=== PATIENT | male | born 1955 | race Hispanic/Latino ===

== ENCOUNTER 2017-08-25 05:05 | Day surgery (SDC) | payer OTHER ==
[2017-08-25] MEDS ORDERED: ASPIRIN PO ONE ×2 (05:28→07:16)
[2017-08-25] MEDS ORDERED: NACL 0.9% 1000 ML 0 ML ONE (05:34)
[2017-08-25] MEDS ORDERED: LOPRESSOR IV ONE ×4 (05:48→06:24)
--- NOTE | 2017-08-25 06:03 | XRay Report ---
FINAL REPORT EXAM: XR CHEST 1V AP HISTORY: chest pain/ carlie TECHNIQUE: AP portable view(s) of the chest obtained. PRIORS: None. FINDINGS: No mediastinal shift. Cardiac silhouette is enlarged. Overlying sternotomy wires. Valvular prosthesis is noted. Small right pleural effusion. Airspace disease silhouettes the right heart border. No pneumothorax or focal left lung abnormality. No acute skeletal finding. IMPRESSION: Right middle lobe airspace disease with small pleural effusion.
--- NOTE | 2017-08-25 06:23 | Emergency Department Report ---
ED General Adult HPI - General Chief complaint: Chest Pain Stated complaint: NEHEMIAH; CP Time Seen by Provider: 08/25/17 06:09 Source: patient Mode of arrival: Ambulatory Limitations: No Limitations - History of Present Illness Initial comments: Sick for 10 days saw emt at his house had heart rate 154 decided not to be transported because of his dogs, got sick this morning with rapid tachycardia and chest pain intermittent has had intermittent near syncope no black or bloody stool here for evaluation of a tachycardia with intermittent chest pain with near syncope, anad o x 3, no tearing p[ain, no calf pain, no gi c/o -: Gradual, days(s), unknown Location: chest Radiation: non-radiation Consistency: intermittent Improves with: none Worsens with: none Associated Symptoms: malaise, shortness of breath, syncope. denies: cough, diaphoresis, fever/chills, rash, seizure, weakness - Related Data Allergies Allergy/AdvReac Type Severity Reaction Status Date / Time No Known Allergies Allergy Verified 08/25/17 06:13 ED Review of Systems ROS: Stated complaint: NEHEMIAH; CP Other details as noted in HPI Comment: All other systems reviewed and negative Constitutional: denies: diaphoresis, fever Eyes: denies: eye discharge, vision change ENT: denies: dental pain, hearing loss, epistaxis Respiratory: shortness of breath. denies: SOB with exertion, SOB at rest, stridor Cardiovascular: chest pain, syncope. denies: palpitations, orthopnea, edema Gastrointestinal: denies: abdominal pain, diarrhea, constipation, hematemesis, melena Genitourinary: denies: urgency Musculoskeletal: denies: joint swelling, arthralgia Neurological: denies: headache, numbness, paresthesias, confusion Hematological/Lymphatic: denies: easy bruising ED Past Medical Hx - Past Medical History Previous Medical History?: Yes Additional medical history: mvp, - Surgical History Past Surgical History?: Yes Additional Surgical History: heart surgery - Social History Smoking Status: Current Every Day Smoker Substance Use Type: None ED Physical Exam - General Limitations: No Limitations General appearance: alert, in distress, other (patient initially comfortable on my initial exam however became diaphoretic and worsening shortness of breath) - Head Head exam: Present: atraumatic, normocephalic - Eye Eye exam: Present: PERRL, EOMI - ENT ENT exam: Present: normal exam, normal orophraynx - Neck Neck exam: Present: normal inspection. Absent: tenderness, meningismus - Respiratory Respiratory exam: Present: normal lung sounds bilaterally, respiratory distress , accessory muscle use - Cardiovascular Cardiovascular Exam: Present: tachycardia. Absent: rubs, gallop - GI/Abdominal GI/Abdominal exam: Present: soft. Absent: distended, tenderness, guarding, rebound, mass - Back Exam Back exam: Present: normal inspection, full ROM. Absent: CVA tenderness (L), muscle spasm, paraspinal tenderness, vertebral tenderness - Neurological Exam Neurological exam: Present: alert, oriented X3, CN II-XII intact. Absent: motor sensory deficit - Psychiatric Psychiatric exam: Present: anxious - Skin Skin exam: Present: diaphoretic ED Course Vital Signs 08/25/17 08/25/17 08/25/17 05:23 05:45 05:55 Temperature 97.4 F L Pulse Rate 66 213 H Respiratory 20 Rate Blood Pressure 90/66 111/79 O2 Sat by Pulse 98 Oximetry 08/25/17 08/25/17 08/25/17 06:01 06:15 06:21 Temperature Pulse Rate 145 H 99 H 188 H Respiratory 22 14 Rate Blood Pressure 103/38 133/77 O2 Sat by Pulse 100 100 Oximetry 08/25/17 08/25/17 08/25/17 06:31 06:45 06:48 Temperature Pulse Rate 145 H 79 80 Respiratory 48 H 20 28 H Rate Blood Pressure 103/76 121/91 121/91 O2 Sat by Pulse 98 100 100 Oximetry 08/25/17 07:00 Temperature Pulse Rate 80 Respiratory 24 Rate Blood Pressure 113/69 O2 Sat by Pulse Oximetry - Reevaluation(s) Reevaluation #1: 08/25/17 07:20 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 He was treated as SVT with adenosine 2. This did not improve fusion of given a beta liam. When I arrived heart rate was 121 T1 40 however patient did become worse with diaphoresis and a tachycardia ED Medical Decision Making - Lab Data Result diagrams: 08/25/17 06:19 08/25/17 06:19 - EKG Data -: EKG Interpreted by Me Rate: tachycardia - EKG Data When compared to previous EKG there are: no significant change - Radiology Data Radiology results: report reviewed - Medical Decision Making Patient did become diaphoretic with worsening parameters heart rate was 180 with therefore did elective synchronous cardioverted at 100j, this was successful with resolution of sinus rhythm. Repeat EKG does show right bundle incomplete with a LVH with T-wave inversions laterally possible old inferior wall IA, troponin was slightly elevated patient was given an aspirin he will be admitted for further evaluation. I discussed case with Dr. Gerry Cintron HOSPITALIST will admit patient was essentially weaned from BiPAP for his CT his blood gas did show normal pH with a low PCO2 and on a percent O2 that P O2 of 300. The shortness of breath likely was related to the tachycardia. He will be admitted for further evaluation I will discuss case with cardiology for further recommendations he is currently stable at this time with repeat systolic blood pressure 1:30 with a tachycardia that is since resolved with cardioversion Critical Care Time: Yes Critical care time in (mins) excluding proc time.: 45 Critical care attestation.: If time is entered above; I have spent that time in minutes in the direct care of this critically ill patient, excluding procedure time. ED Disposition Clinical Impression: Narrow complex tachycardia, Respiratory distress, Elevated troponin, Near syncope Disposition: OP ADMIT IP TO THIS HOSP Is pt being admited?: Yes Condition: Serious Referrals: TRACE CARRION MD [Primary Care Provider] - 3-5 Days Time of Disposition: 07:26
[2017-08-25] MEDS ORDERED: ZOFRAN IV ONE (06:27)
[2017-08-25] MEDS ORDERED: ATIVAN ONE ×2 (06:36→08:13)
[2017-08-25] MEDS ORDERED: CORDARONE IV ONE (06:39)
[2017-08-25 06:46] LABS: Basophils % (Auto) 0.4 % (0.0-1.8); Eosinophils % (Auto) 0.3 % (0.0-4.3); Hematocrit 44.5 % (35.5-45.6); Hemoglobin 14.7 gm/dl (11.8-15.2); Lymphocytes # (Auto) 1.3 K/mm3 (1.2-5.4); Lymphocytes % (Auto) 20.6 % (13.4-35.0); Mean Corpuscular HGB Conc 33 % (32-34); Mean Corpuscular Hemoglobin 34 pg (28-32); Mean Corpuscular Volume 104 fl (84-94); Monocytes # (Auto) 0.4 K/mm3 (0.0-0.8); Monocytes % (Auto) 6.9 % (0.0-7.3); Platelet Count 146 K/mm3 (140-440); Red Blood Count 4.28 M/mm3 (3.65-5.03); Red Cell Distribution Width 14.8 % (13.2-15.2)
[2017-08-25 06:59] LABS: BUN/Creatinine Ratio 14; Blood Urea Nitrogen 14 mg/dL (9-20); Calcium 8.3 mg/dL (8.4-10.2); Hemolysis Index 24
[2017-08-25] MEDS ORDERED: NACL ONE ×2 (07:11→07:33)
--- NOTE | 2017-08-25 07:18 | XRay Report ---
FINAL REPORT EXAM: XR CHEST 1V AP HISTORY: sob TECHNIQUE: AP portable view(s) of the chest obtained. PRIORS: 08/25/2017 FINDINGS: No mediastinal shift. Enlarged cardiac silhouette. Overlying sternotomy wires and cardiac valvular prosthesis. Decreased aeration of the lower lungs compared to earlier exam of the same date. No pneumothorax. IMPRESSION: Decreased aeration of the lungs compared to earlier exam of the same date may be positional or secondary to worsening infection, effusion and/or interstitial edema.
[2017-08-25 07:40] LABS: Chol/HDL Ratio 2.94 %; HDL Cholesterol 50 mg/dL (40-59); LDL Cholesterol,Direct 88 mg/dL (50-130)
[2017-08-25] MEDS ORDERED: CORDARONE 150 MG in D5W 100 ML IV ONE (08:00)
[2017-08-25] MEDS ORDERED: CORDARONE 900 MG in D5W 482 ML IV SCH (08:00)
[2017-08-25] MEDS ORDERED: SODIUM CHLORIDE FLUSH SYRINGE 10 ML IV PRN (08:12)
[2017-08-25 08:21] LABS: Hematocrit 48.8 % (35.5-45.6); Hemoglobin 16.3 gm/dl (11.8-15.2)
[2017-08-25 08:32] LABS: INR 1.12 (0.87-1.13)
[2017-08-25 08:33] LABS: Partial Thromboplastin Time 31.4 Sec. (24.2-36.6)
[2017-08-25] MEDS ORDERED: HEPARIN ONE (08:40)
--- NOTE | 2017-08-25 08:42 | History and Physical Report ---
History of Present Illness Date of examination: 08/25/17 Date of admission: 08/25/17 Chief complaint: shortness of breath, tachycardia History of present illness: Patient is a 62-year-old male presented to the ED with complaints of shortness of breath and palpitation which has not was noted for more than a week now. About 10 days ago the patient was seen by ENT of his hospital time his heart rate was 154-160 the patient decided against coming to the hospital because of his dogs. He continued to have this and also complained of persistent near syncope and this morning with was no shortness of breath presented to the hospital. On arrival was noted to have a heart rate in the 180s, diaphoretic with shortness of breath. He denied chest pain but had reported that to the ED physician. Which improved to the 140s and subsequently went back up to 160s he did have cardioversion at 100 J with improvement but once again went back up to the 180s requiring amiodarone drip started. On initiation of amiodarone. The patient became bradycardic leading to cessation of amiodarone. Patient was recommended for admission and cardiology was consulted. He was also initially placed on BiPAP due to shortness of breath but on my evaluation patient had come off BiPAP. He was speaking full sentences. But could not provide specific information about his symptoms except what was already noted from the emergency room physician. He denied any hemoptysis or hematemesis or melena. Past History Past Medical History: other (mitral valve prolapase) Past Surgical History: Other Social history: no significant social history Family history: no significant family history Medications and Allergies Allergies Allergy/AdvReac Type Severity Reaction Status Date / Time No Known Allergies Allergy Verified 08/25/17 06:13 Active Meds: Active Medications Amiodarone HCl 900 mg/ (Dextrose) 500 mls @ 33.33 mls/hr IV DIRECT KRISTA; Protocol Heparin Sodium/Sodium Chloride (Heparin/ 0.45% Nacl-25,000 Unit/500 Ml) 25,000 unit in 500 mls @ 18 mls/hr IV TITRATE KRISTA; Protocol Sodium Chloride (Sodium Chloride Flush Syringe 10 Ml) 10 ml IV BID KRISTA Sodium Chloride (Sodium Chloride Flush Syringe 10 Ml) 10 ml IV PRN PRN PRN Reason: LINE FLUSH Review of Systems All systems: negative Constitutional: fatigue, weakness, malaise, lethargy Cardiovascular: chest pain, palpitations, lightheadedness Respiratory: shortness of breath Integumentary: other (cyanosis) Exam - Physical Exam Narrative exam: VITAL SIGNS: Reviewed. GENERAL: The patient appeared to be as uncomfortable Stephanie skin appearance. No gross respiratory compromise noted.. Vital signs as documented. HEAD: No signs of head trauma. EYES: Pupils are equal. Extraocular motions intact. EARS: Hearing grossly intact. MOUTH: Oropharynx is normal. NECK: No adenopathy, no JVD. CHEST: Chest with clear breath sounds bilaterally. No wheezes, rales, or rhonchi. CARDIAC: Bradycardia. S1 and S2, without murmurs, gallops, or rubs. VASCULAR: No Edema. Peripheral pulses normal and equal in all extremities. ABDOMEN: Soft, without detectable tenderness. No sign of distention. No rebound or guarding, and no masses palpated. Bowel Sounds normal. MUSCULOSKELETAL: Good range of motion of all major joints. Extremities without clubbing, edema. Cyanosis also area. NEUROLOGIC EXAM: Alert and oriented x 3. No focal sensory or strength deficits. Speech normal. Follows commands. PSYCHIATRIC: Mood normal. SKIN: Cyanotic skin changes in the upper trunk area. - Constitutional Vitals: Temp Pulse Resp BP Pulse Ox 94.7 F L 105 H 20 135/78 98 08/25/17 07:53 08/25/17 07:45 08/25/17 07:45 08/25/17 07:45 08/25/17 07:45 Results - Labs CBC & Chem 7: 08/25/17 08:10 08/25/17 06:19 Labs: Laboratory Last Values WBC 6.2 K/mm3 (4.5-11.0) 08/25/17 06:19 RBC 4.28 M/mm3 (3.65-5.03) 08/25/17 06:19 Hgb 16.3 gm/dl (11.8-15.2) H 08/25/17 08:10 Hct 48.8 % (35.5-45.6) H 08/25/17 08:10 MCV 104 fl (84-94) H 08/25/17 06:19 MCH 34 pg (28-32) H 08/25/17 06:19 MCHC 33 % (32-34) 08/25/17 06:19 RDW 14.8 % (13.2-15.2) 08/25/17 06:19 Plt Count 140 K/mm3 (140-440) 08/25/17 08:10 Lymph % (Auto) 20.6 % (13.4-35.0) 08/25/17 06:19 Morrill % (Auto) 6.9 % (0.0-7.3) 08/25/17 06:19 Eos % (Auto) 0.3 % (0.0-4.3) 08/25/17 06:19 Baso % (Auto) 0.4 % (0.0-1.8) 08/25/17 06:19 Lymph # 1.3 K/mm3 (1.2-5.4) 08/25/17 06:19 Morrill # 0.4 K/mm3 (0.0-0.8) 08/25/17 06:19 Eos # 0.0 K/mm3 (0.0-0.4) 08/25/17 06:19 Baso # 0.0 K/mm3 (0.0-0.1) 08/25/17 06:19 Seg Neutrophils % 71.8 % (40.0-70.0) H 08/25/17 06:19 Seg Neutrophils # 4.4 K/mm3 (1.8-7.7) 08/25/17 06:19 PT 15.0 Sec. (12.2-14.9) H 08/25/17 08:10 INR 1.12 (0.87-1.13) 08/25/17 08:10 APTT 31.4 Sec. (24.2-36.6) 08/25/17 08:10 POC ABG pH 7.349 (7.35-7.45) L 08/25/17 07:25 POC ABG pCO2 29.3 (35-45) L 08/25/17 07:25 POC ABG pO2 317 (80-105) H 08/25/17 07:25 POC ABG HCO3 16.1 08/25/17 07:25 POC ABG Total CO2 17 08/25/17 07:25 POC ABG O2 Sat 100 08/25/17 07:25 POC ABG Base Excess -10 08/25/17 07:25 Sodium 141 mmol/L (137-145) 08/25/17 06:19 Potassium 4.0 mmol/L (3.6-5.0) 08/25/17 06:19 Chloride 107.0 mmol/L (98-107) 08/25/17 06:19 Carbon Dioxide 18 mmol/L (22-30) L 08/25/17 06:19 Anion Gap 20 mmol/L 08/25/17 06:19 BUN 14 mg/dL (9-20) 08/25/17 06:19 Creatinine 1.0 mg/dL (0.8-1.5) 08/25/17 06:19 Estimated GFR > 60 ml/min 08/25/17 06:19 BUN/Creatinine Ratio 14 % 08/25/17 06:19 Glucose 134 mg/dL (75-100) H 08/25/17 06:19 Lactic Acid 4.20 mmol/L (0.7-2.0) H* 08/25/17 07:45 Calcium 8.3 mg/dL (8.4-10.2) L 08/25/17 06:19 Magnesium 2.30 mg/dL (1.7-2.3) 08/25/17 08:10 Troponin T 0.039 ng/mL (0.00-0.029) H 08/25/17 06:19 NT-Pro-B Natriuret Pep 85547 pg/mL (0-900) H 08/25/17 06:50 Triglycerides 57 mg/dL (2-149) 08/25/17 06:19 Cholesterol 147 mg/dL (50-199) 08/25/17 06:19 LDL Cholesterol Direct 88 mg/dL (50-130) 08/25/17 06:19 HDL Cholesterol 50 mg/dL (40-59) 08/25/17 06:19 Cholesterol/HDL Ratio 2.94 % 08/25/17 06:19 TSH 2.670 mlU/mL (0.270-4.200) 08/25/17 06:50 - Imaging and Cardiology Chest x-ray: report reviewed (small pleural effusion) CT scan - chest: pending Assessment and Plan Assessment and plan: Patient is a 62-year-old male presented to the ED with complaints of shortness of breath and palpitation which has not was noted for more than a week now. About 10 days ago the patient was seen by ENT of his hospital time his heart rate was 154-160 the patient decided against coming to the hospital because of his dogs. He continued to have this and also complained of persistent near syncope and this morning with was no shortness of breath presented to the hospital. On arrival was noted to have a heart rate in the 180s, diaphoretic with shortness of breath. He denied chest pain but had reported that to the ED physician. Which improved to the 140s and subsequently went back up to 160s he did have cardioversion at 100 J with improvement but once again went back up to the 180s requiring amiodarone drip started. On initiation of amiodarone. The patient became bradycardic leading to cessation of amiodarone. Patient was recommended for admission and cardiology was consulted. He was also initially placed on BiPAP due to shortness of breath but on my evaluation patient had come off BiPAP. He was speaking full sentences. But could not provide specific information about his symptoms except what was already noted from the emergency room physician. He denied any hemoptysis or hematemesis or melena.On discussion with the patient he did appear AFIB WITH RVR Bradycardia with Junctional rhythm Narrow complex SVT ACS Acute Respiratory failure Elevated ProBNP. Possible underlying Heart failure vs arrhythmia induced cardiomyopathy Near syncope secondary to cardiac arrhythmia Plan Admit to ICU Heparin drip Cardiology consult Intensivisty Consult Possible Intubation if no significant improvement. Hold Amiodarone drip given evidence of Bradycardia Close monitoring of pressors Statin, ASA cardiac enzymes and lipid profile and monitoring electrolytes DVT/GI prophy Plan of care discussed in detail with the patient and he verablized understading. Discussed with cardiology team. The high probability of a clinically significant, sudden or life threatening deterioration of the [CARDIAC] system(s) required my full and direct attention, intervention and personal management. The aggregate critical care time was [35] minutes. This time is in addition to time spent performing reported procedures but includes the following: [X] Data Review and interpretation [X] Patient assessment and monitoring of vital signs [X] Documentation [X] Medication orders and management Advance Directives: Yes Plan of care discussed with patient/family: Yes
[2017-08-25] MEDS ORDERED: HEPARIN/ 0.45% NACL-25,000 UNIT/500 ML 25,000 UNIT/500 ML BAG IV SCH (09:00)
--- NOTE | 2017-08-25 09:18 | XRay Report ---
AP ABDOMEN: HISTORY: Tube placement. A nasogastric tube has been inserted which is coiled in the fundus of the stomach. The abdominal gas pattern is unremarkable. No masses or organomegaly is identified and there is no gross evidence of free air or fluid. No significant soft tissue calcifications are noted. Moderate cardiomegaly is noted at the lung bases. IMPRESSION: The nasogastric tube is coiled in the fundus of the stomach.
--- NOTE | 2017-08-25 09:19 | XRay Report ---
AP CHEST: HISTORY: Endotracheal tube placement Compared to 08/25/17. An endotracheal tube has been inserted which terminates 2.3 cm superior to the jalen. There is moderate cardiomegaly and mild pulmonary venous congestion. Previous cardiac valve replacement surgery changes are noted. The lungs are generally clear. Trace right pleural effusion is suspected. IMPRESSION: Adequate placement of the endotracheal tube. Cardiomegaly. Trace right pleural effusion.
--- NOTE | 2017-08-25 09:37 | Consultation ---
History of Present Illness Consult date: 08/25/17 Requesting physician: DWIGHT SENIOR Consult reason: tachycardia History of present illness: The patient is a 63 YO male who is previously unknown to our practice. Upon initial evaluation, pt was intubated and nonresponsive and thus HPI obtained per the chart, ED RN and ED MD. The pt presented to ED this morning with complaints of shortness of breath and palpitations for the past 1 week. About 10 days ago, the patient was seen at his home per EMS with the same complaints. At that time, he was found to be tachycardic with HR 150-160s but the pt declined being transported the hospital because he had to care for his dogs. Following arrival to ED this morning, the patient was reportedly A&O and was noted to be in SVT with with HR in 200s. He was given IV adenosine (6mg->12mg-> 12mg), lopressor, and was eventually cardioverted with 100J. Pt developed tachycardia (reportedly VT per ED MD) again with respiratory distress with cyanosis and was eventually intubated. He was initiated on amio gtt. Pt was transported to [place] and was initially seen upon returning from [place]. Upon initial evaluation, pt was noted to be bradycardic (HR in 40s) with BPs 60/30s and was noted to have ST elevations on telemetry. IV amio held. Atropine given with no effect. STAT 12-lead EKG demonstrated junctional rhythm with ST elevations in inferior leads. Pt was taken to [facility] for emergent coronary angiography, possible TVP placement and possible IABP placement. Pt experienced cardiac arrest in the [facility] and ultimately despite resuscitation efforts. Medications and Allergies Allergies Allergy/AdvReac Type Severity Reaction Status Date / Time No Known Allergies Allergy Verified 08/25/17 06:13 Active Meds: Active Medications Amiodarone HCl 900 mg/ (Dextrose) 500 mls @ 33.33 mls/hr IV DIRECT KRISTA; Protocol Heparin Sodium/Sodium Chloride (Heparin/ 0.45% Nacl-25,000 Unit/500 Ml) 25,000 unit in 500 mls @ 18 mls/hr IV TITRATE KRISTA; Protocol Sodium Chloride (Sodium Chloride Flush Syringe 10 Ml) 10 ml IV BID KRISTA Sodium Chloride (Sodium Chloride Flush Syringe 10 Ml) 10 ml IV PRN PRN PRN Reason: LINE FLUSH Review of Systems ROS unobtainable: due to endotracheal tube, due to mental status Physical Examination Vital Signs Temp Pulse Resp BP Pulse Ox 97.4 F L 66 20 90/66 98 08/25/17 05:23 08/25/17 05:23 08/25/17 05:23 08/25/17 05:23 08/25/17 05:23 General appearance: other (intubated, nonresponsive) HEENT: Positive: Other (pupils fixed & dilated) Cardiac: Positive: S1/S2, Bradycardia Lungs: Positive: Decreased Breath Sounds, Ventilated Respirations Neuro: Positive: Other (intubated, nonresponsive) Abdomen: Positive: Soft Skin: Positive: Mottled, Cool. Negative: Wound Musculoskeletal: No Fluid Collection Extremities: Present: upper extr. pulses, lower extr. pulses. Absent: edema Results 08/25/17 08:10 08/25/17 06:19 Coagulation 08/25/17 Range/Units 08:10 PT 15.0 H (12.2-14.9) Sec. INR 1.12 (0.87-1.13) APTT 31.4 (24.2-36.6) Sec. Lipids 08/25/17 Range/Units 06:19 Triglycerides 57 (2-149) mg/dL Cholesterol 147 (50-199) mg/dL HDL Cholesterol 50 (40-59) mg/dL Cholesterol/HDL Ratio 2.94 % CBC 08/25/17 08/25/17 Range/Units 06:19 08:10 WBC 6.2 (4.5-11.0) K/mm3 RBC 4.28 (3.65-5.03) M/mm3 Hgb 14.7 16.3 H (11.8-15.2) gm/dl Hct 44.5 48.8 H (35.5-45.6) % Plt Count 146 140 (140-440) K/mm3 Lymph # 1.3 (1.2-5.4) K/mm3 Crawford # 0.4 (0.0-0.8) K/mm3 Eos # 0.0 (0.0-0.4) K/mm3 Baso # 0.0 (0.0-0.1) K/mm3 Comprehensive Metabolic Panel 08/25/17 Range/Units 06:19 Sodium 141 (137-145) mmol/L Potassium 4.0 (3.6-5.0) mmol/L Chloride 107.0 (98-107) mmol/L Carbon Dioxide 18 L (22-30) mmol/L BUN 14 (9-20) mg/dL Creatinine 1.0 (0.8-1.5) mg/dL Glucose 134 H (75-100) mg/dL Calcium 8.3 L (8.4-10.2) mg/dL - Imaging and Cardiology Cardiac cath: report reviewed EKG: report reviewed, image reviewed EKG interpretations - Telemetry EKG Rhythm: Junctional Additional Comments: junctional rhythm with ST elevations in inferior leads Assessment and Plan Pt . The patient has been seen in conjunction with Dr. Benjamin who agrees with the assessment and findings.
[2017-08-25] MEDS ORDERED: VASELINE LIP THERAPY TP PRN (09:56)
[2017-08-25] MEDS ORDERED: ARTIFICIAL TEARS OPHTH OINT OU PRN (09:56)
[2017-08-25] MEDS ORDERED: ATIVAN 100 MG in NACL 0.9% 50 ML, VIAFLEX EMPTY CONTAINER 0 ML IV SCH (10:00)
[2017-08-25] MEDS ORDERED: SODIUM CHLORIDE FLUSH SYRINGE 10 ML IV SCH (10:00)
--- NOTE | 2017-08-25 10:05 | Cat Scan Report ---
FINAL REPORT EXAM: CT ANGIO CHEST HISTORY: sob TECHNIQUE: CT angiography of the chest was performed. 100 cc Omnipaque 350 IV administered. Coronal and sagittal reformatted images were obtained. PRIORS: None. FINDINGS: There is marked cardiomegaly. There is a moderate right pleural effusion. There is a small left pleural effusion. There is no pulmonary embolism seen. Evaluation of subsegmental arteries is limited due to breathing motion. There is atelectasis at both lung bases. There is reflux of contrast material into the IVC and hepatic veins suggesting right heart failure. There is mild ascites in the upper abdomen. IMPRESSION: There is no pulmonary embolism seen. Respiratory motion limits evaluation of subsegmental arteries. Moderate right and small left pleural effusions. Bibasilar atelectasis. Marked cardiomegaly. Retrograde flow contrast material into IVC and hepatic veins which suggest right heart failure. Mild ascites in visualized upper abdomen.
--- NOTE | 2017-08-25 10:07 | Cat Scan Report ---
FINAL REPORT EXAM: CT HEAD/BRAIN WO CON HISTORY: sob TECHNIQUE: CT of the head was performed. No intravenous contrast was administered. PRIORS: None. FINDINGS: There is moderate cerebral atrophy. 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 There is no evidence of intracranial hemorrhage. There is no edema, mass effect or midline shift. There are no abnormal extra-axial fluid collections. The ventricles are appropriate for brain volume. There is no skull fracture seen. The visualized aspects of the sinuses are clear. IMPRESSION: There is no acute intracranial abnormality identified.
[2017-08-25] MEDS ORDERED: NACL 0.9% 1000 ML 1,000 ML IV ONE (10:20)
[2017-08-25] MEDS ORDERED: NACL 0.9% 1000 ML 1,000 ML ONE ×2 (10:22→10:25)
[2017-08-25] MEDS ORDERED: INTROPIN DRIP 800 MG/D5W 250 ML 800 MG/250 ML BAG IV ONE (10:23)
[2017-08-25] MEDS ORDERED: HEPARIN/NS 5000 UNIT/500ML(CATH LAB) 1,500 ML IR ONE (10:24)
[2017-08-25] MEDS ORDERED: HEPARIN 10,000 UNITS/10 ML ONE (10:24)
[2017-08-25] MEDS ORDERED: ATROPINE 0.1% (CARDIAC) ONE ×2 (10:24→10:50)
[2017-08-25] MEDS ORDERED: XYLOCAINE 2% INFILTRATI ONE (10:25)
[2017-08-25] MEDS ORDERED: CALCIUM CHLORIDE IV ONE (10:50)
[2017-08-25] MEDS ORDERED: INTROPIN DRIP 800 MG/D5W 250 ML IV ONE (10:50)
[2017-08-25] MEDS ORDERED: SODIUM BICARBONATE IV ONE (10:50)
[2017-08-25] MEDS ORDERED: ADRENALIN ONE (10:50)
[2017-08-25] MEDS ORDERED: TRIDIL DRIP 50MG/250ML 50 MG/250 ML BOTTLE ONE (10:54)
[2017-08-25] MEDS ORDERED: HEPARIN/NS 5000 UNIT/500ML(CATH LAB) 500 ML IR ONE ×2 (10:56→10:57)
[2017-08-25 11:20] VITALS: BP 103/56
--- NOTE | 2017-08-25 12:55 | Cardiac Catherization Report ---
CARDIAC CATHETERIZATION Indication for cardiac catheterization. The patient is a 62-year-old gentleman, who apparently has been having chest pain for some 10 days, had EMS come to his house 10 days ago for SVT, was treated at home and refused to come to the Emergency Room. Brought to the Emergency Room with recurrent SVT, got shocked, improved his heart rate, but it continued to rise, was started on iv amiodarone. Eventually deteriorated into ventricular tachycardia, respiratory failure coded in the Emergency Room multiple times with hypotension and he became bradycardic, hypotensive, borderline ST elevation inferiorly. Due to these changes an urgent left heart catheterization is requested. He is critically ill, hypotensive, bradycardic, intubated. On multiple pressors, wide open IVF. Asa and heparin were loaded. The patient was brought to the medical laboratory technical officer in urgent fashion. He was prepped and draped in sterile fashion. Multiple nurses and respiratory in the room along with the cath team. We quickly obtained right femoral arterial and venous access with modified Seldinger technique. He is hypotensive, bradycardic. He was started on epinephrine drip, dopamine drip, IV fluids are wide open. Heparin was already given. Balloon tipped temporary venous pacemaker was placed under fluoroscopic guidance. Next, we turned our attention prior to starting the left heart cath the patient underwent PEA arrest. This is his third or fourth arrest during the last several hours. ACLS protocol is initiated. Multiple team members involved with compressions and ACLS medications. Left heart catheterization is performed between compressions. JL4 catheter used to engage the left main. Cineangiography performed. JR4 catheter used to cross the aortic valve under fluoroscopic guidance. Left ventriculography performed in 30 degree HDZ projection via hand injections. Catheter flushed. Manual pullback performed with continuous pressure monitoring. Next, catheter used to engage the right coronary. Now aortic pressure is in the 50s and 60s. Temporary venous pacemaker was placed is 100% paced. He is intubated. Pupils are becoming less responsive at this point. His left system is entirely spasm with ESA 2 flow. 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 Between compressions a JR4 guide used to engage the right coronary. A Equality wire used to cross the lesion. PTCA is performed to open the right coronary with 2.5 x 12mm balloon. ESA 3 flow was returned. The patient continues to undergo ACLS protocol. Due to shock intraaortic balloon pump is placed in the left groin under fluoroscopic guidance. Despite maximal efforts and approximately 20-25 minutes of ACLS and compressions post-PTCA patient did not return a pulse and unfortunately despite our best effort. Time of is 1108. Approximately 60 minutes of critical care time was spent. No family is available. We were unable to reach family member via phone number on the chart. We will continue to attempt to do so. JOB# [id number] BONI/MERVIN ESCOBEDO
[2017-08-25] MEDS ORDERED: HEPARIN IV ONE (14:17)
[2017-08-25] MEDS ORDERED: AMIDATE IV ONE (23:00)
[2017-08-25] MEDS ORDERED: VERSED IV ONE (23:00)
[2017-08-25] MEDS ORDERED: QUELICIN ONE (23:00)
== END 2017-08-25 12:21 | disposition home or self-care (01) ==
LOC: ED 05:05 → CATH 12:20
PROVIDERS: ATTEND Internal Medicine
DX: I47.2 Ventricular tachycardia (principal); I25.10 Atherosclerotic heart disease of native coronary artery without angina pectoris
CPT/HCPCS: 33210; 33967; 36415; 70450; 71045; 71275; 74018; 80048; 80061; 82140; 82803; 83735; 83880; 84443; 84484; 85014; 85018; 85025; 85049; 85610; 85730; 87040; 92920; 93005; 93010; 93458; 94002; C1725; C1769; C1887; C1894; J0153; J0171; J0282; J0330; J0461; J1265; J1644; J2060; J2250; J2405; J7030; J7060; Q9967